=== PATIENT | female | born 1970 | race Caucasian/White ===

== ENCOUNTER 2017-09-27 10:31 | Emergency (ER) | payer BC, OTHER ==
[~2017-09-27] VITALS: Ht 152.4 cm; Wt 92.3 kg
[~2017-09-27 10:31] MED LIST: ASPI81TA28 PO; GABA-1220 PO; INSU70IN2 SC; LISI-787 PO
[2017-09-27 10:37] VITALS: TEMP 36.8; Ht 152.4 cm; Wt 92.3 kg
[2017-09-27] MEDS ORDERED: LISINOPRIL/HCTZ 20/25MG TAB PO STA (10:58)
[2017-09-27 11:22] LABS: BASO % 0.4 %; BASO ABS # 0.03 K/uL (0-0.2); EOS % 1.1 %; EOS ABS # 0.09 K/uL (0-0.5); HEMATOCRIT 37.3 % (37-47); HEMOGLOBIN 11.6 g/dL (12.0-16.0); IG# 0.02 K/uL (0.00-0.02); LYMPH % 23.4 %; MEAN CELL VOLUME 67.2 fL (80-100); MEAN CORPUSCULAR HEMOGLOBIN 20.9 pg (25-34); MEAN CORPUSCULAR HGB CONC 31.1 g/dl (32-36); MEAN PLATELET VOLUME 10.4 fL (7.4-10.4); MONO % 4.6 %; MONO ABS # 0.39 K/uL (0.11-0.59); NEUT % 70.3 %; NEUT ABS # 6.03 K/uL (1.4-6.5); PLATELET COUNT 277 K/uL (130-400); RED CELL DISTRIBUTION WIDTH CV 15.3 % (11.5-14.5); RED CELL DISTRIBUTION WIDTH SD 37.2 fL (36.4-46.3); WHITE BLOOD COUNT 8.56 K/uL (4.8-10.8)
[2017-09-27] MEDS ORDERED: KETOROLAC TROMETHAMINE 30 MG/ML VIAL IV STA (11:26)
[2017-09-27 11:33] LABS: INR 0.9 (0.9-1.1); PTT PATIENT 28.8 SECONDS (21.0-31.0)
[2017-09-27 11:40] LABS: ALBUMIN 2.9 gm/dl (3.4-5.0); ALT/SGPT 17 U/L (12-78); AST/SGOT 11 U/L (15-37); BLOOD UREA NITROGEN 14 mg/dl (7-18); CALCIUM 8.9 mg/dl (8.5-10.1); CARBON DIOXIDE 28 mmol/L (21-32); CREATININE 0.98 mg/dl (0.60-1.20); GLUCOSE 341 mg/dl (70-99); POTASSIUM 3.8 mmol/L (3.5-5.1); SODIUM 132 mmol/L (136-145)
[2017-09-27 11:42] LABS: TOTAL PROTEIN 7.5 gm/dl (6.4-8.2)
[2017-09-27 11:50] LABS: ALKALINE PHOSPHATASE 148 U/L (45-117)
--- NOTE | 2017-09-27 12:49 | DIAGNOSTIC IMAGING REPORT ---
L VENOUS DOPP LOWER EXT UNILAT CLINICAL HISTORY: eval for dvt pain. Edema. TECHNIQUE: Venous Doppler COMPARISON STUDY: None FINDINGS: Left leg is negative for deep venous thrombosis. Venous flow characteristics and compressibility are within normal limits. Incidental note is made of a popliteal cyst posterior to the left knee measuring 5 x 2 cm. IMPRESSION: 1. Left leg is negative for deep venous tendinosis. 2. Popliteal cyst posterior to left knee The above report was generated using voice recognition software. It may contain grammatical, syntax or spelling errors. Electronically signed by: Chencho Larsen M.D. 09/27/2017 12:48 PM Dictated Date/Time: 09/27/2017 12:46 PM
[2017-09-27] MEDS ORDERED: SODIUM CHLORIDE 0.9% 1000ML 1,000 ML IV STA (13:13)
[2017-09-27] MEDS ORDERED: NovoLIN-R INSULIN PER UNIT CHARGE IV STA (13:13)
--- NOTE | 2017-09-27 13:26 | DIAGNOSTIC IMAGING REPORT ---
LUMBAR SPINE 5 VIEWS CLINICAL HISTORY: Chronic low back pain. FINDINGS: 5 views of the lumbar spine are correlated with abdominal CT dated 10/04/2015. The skeletal structures are well mineralized. There is no radiographic evidence of fracture or malalignment. Vertebral body height and alignment are maintained. The transverse and spinous processes are intact. There is no evidence of spondylolysis. Tiny anterior osteophytes are seen throughout. The intervertebral disc spaces are well-maintained. The visualized bony pelvis appears intact. There is a nonobstructed abdominal bowel gas pattern. Calcified phleboliths are noted in the pelvis. IMPRESSION: Unremarkable radiographic evaluation of the lumbosacral spine. Electronically signed by: Girma Blevins M.D. 09/27/2017 1:24 PM Dictated Date/Time: 09/27/2017 1:23 PM
[2017-09-27] MEDS ORDERED: LISI-787 PO (14:41)
[2017-09-27 14:54] VITALS: BP 210/115; PULSE 93; O2SAT 95
--- NOTE | 2017-09-27 17:17 | EMERGENCY ROOM VISIT NOTE ---
History Report prepared by Stefano: Freddy Ma Under the Supervision of: Dr. Kirill Matt M.D. First contact with patient: 10:45 Chief Complaint: LEG PAIN,LEG INJURY Stated Complaint: LEFT CALF BURNING AND THROBBING, BACK & NECK PAIN History of Present Illness The patient is a 47 year old female who presents to the Emergency Room with complaints of constant left calf pain beginning yesterday. The patient describes her pain as a "burning" and "pulling" sensation. She localizes the pain to a specific area on her outer, upper calf. She has a history of cervical disc disease, spinal stenosis, chronic lower back pain (x1 year), and herniated disc (x2 years). The patient notes that her pain began after being seen by a chiropractor last week. She states that her chiropractor used a "mervat hammer- like machine" on her lower back which seem to worsen her back pain and because pain to shoot down her leg. She notes that she chronically has numbness in her buttocks (x1 month or more) as well. The patient denies any weakness, chest pain , SOB, abdominal pain, fevers, abnormal leg swelling, or loss of continence. Her right leg appears a little larger than her left, but this is normal for her. The patient has a history of hypertension, but has not been taking her Lisinopril and insulin for 2.5 months due to her insurance no longer covering the medication. She states that her lisinopril is covered but she never got around to getting a prescription. She also never got around to following up with her doctor about her diabetes medication. She denies chance of . Source of History: patient Onset: yesterday Position: leg (left calf) Quality: burning, other ("pulling") Timing: constant Associated Symptoms: + numbness (in buttocks (x1 month or more)), No fevers , No chest pain, No SOB, No abdominal pain, No weakness Note: Negative: abnormal leg swelling, or loss of continence. Review of Systems See HPI for pertinent positives & negatives. A total of 10 systems reviewed and were otherwise negative. Past Medical & Surgical Medical Problems: (1) Alport's syndrome (2) Diabetes mellitus, type II (3) Dyslipidemia (4) Gastroparesis (5) GERD (gastroesophageal reflux disease) (6) Hypertension (7) IBS (irritable bowel syndrome) (8) Iron deficiency anemia (9) Metabolic syndrome (10) Morbid obesity with BMI of 40.0-44.9, adult Surgical Problems: (1) Status post section Family History Alport's disease MOTHER BROTHER BROTHER Diabetes mellitus MOTHER BROTHER ( at age 35 ) FH: heart disease MOTHER (Fatal VT 60s ) Hypertension MOTHER BROTHER Social History Smoking Status: Former Smoker Alcohol Use: none Drug Use: none Marital Status: single Housing Status: lives with family Occupation Status: employed Current/Historical Medications Scheduled Lisinopril/Hctz (Zestoretic 20MG/12.5MG), 1 TAB PO DAILY Allergies Coded Allergies: No Known Allergies (Verified , 09/27/17) Physical Exam Vital Signs Date Time Temp Pulse Resp B/P (MAP) Pulse Ox O2 Delivery O2 Flow Rate FiO2 09/27/17 14:54 93 18 210/115 95 Room Air 09/27/17 13:05 98 16 213/128 96 Room Air 09/27/17 11:16 100 18 233/119 98 Room Air 09/27/17 10:37 36.8 109 18 231/145 99 Room Air Physical Exam Constitutional: Vital signs reviewed. Eyes: Pupils are equal round reactive to light. Conjunctiva are noninjected. ENT: Pharynx is clear without erythema or exudate. Mucous membranes are moist. Neck supple without meningeal signs. Respiratory: Clear to auscultation bilaterally. Breath sounds are equal bilaterally. Cardiovascular: Regular rate and rhythm. No rubs or gallops. GI: Soft, nondistended and nontender. Bowel sounds are present. Musculoskeletal: No peripheral edema. No lower extremity tenderness. No tenderness to the left calf. No erythema, or palpable cord. Integumentary: No cyanosis. Neurological: The patient is awake and alert. No focal deficits. Psychiatric: Normal affect. Medical Decision & Procedures ER Provider Diagnostic Interpretation: Radiology results as stated below per my review and the radiologist's interpretation: L VENOUS DOPP LOWER EXT UNILAT FINDINGS: Left leg is negative for deep venous thrombosis. Venous flow characteristics and compressibility are within normal limits. Incidental note is made of a popliteal cyst posterior to the left knee measuring 5 x 2 cm. IMPRESSION: 1. Left leg is negative for deep venous tendinosis. 2. Popliteal cyst posterior to left knee The above report was generated using voice recognition software. It may contain grammatical, syntax or spelling errors. Electronically signed by: Chencho Larsen M.D. 09/27/2017 12:48 PM LUMBAR SPINE 5 VIEWS FINDINGS: 5 views of the lumbar spine are correlated with abdominal CT dated 10/04/2015. The skeletal structures are well mineralized. There is no radiographic evidence of fracture or malalignment. Vertebral body height and alignment are maintained. The transverse and spinous processes are intact. There is no evidence of spondylolysis. Tiny anterior osteophytes are seen throughout. The intervertebral disc spaces are well-maintained. The visualized bony pelvis appears intact. There is a nonobstructed abdominal bowel gas pattern. Calcified phleboliths are noted in the pelvis. IMPRESSION: Unremarkable radiographic evaluation of the lumbosacral spine. Electronically signed by: Girma Blevins M.D. 09/27/2017 1:24 PM Laboratory Results 09/27/17 11:10 Red Blood Count 5.55, Mean Corpuscular Volume 67.2, Mean Corpuscular Hemoglobin 20.9, Mean Corpuscular Hemoglobin Concent 31.1, Mean Platelet Volume 10.4, Neutrophils (%) (Auto) 70.3, Lymphocytes (%) (Auto) 23.4, Monocytes (%) (Auto) 4.6, Eosinophils (%) (Auto) 1.1, Basophils (%) (Auto) 0.4, Neutrophils # (Auto) 6.03, Lymphocytes # (Auto) 2.00, Monocytes # (Auto) 0.39, Eosinophils # (Auto) 0.09, Basophils # (Auto) 0.03 09/27/17 11:10 Test 09/27/17 11:10 09/27/17 11:30 White Blood Count 8.56 K/uL (4.8-10.8) Red Blood Count 5.55 M/uL (4.2-5.4) Hemoglobin 11.6 g/dL (12.0-16.0) Hematocrit 37.3 % (37-47) Mean Corpuscular Volume 67.2 fL (80-100) Mean Corpuscular Hemoglobin 20.9 pg (25-34) Mean Corpuscular Hemoglobin Concent 31.1 g/dl (32-36) Platelet Count 277 K/uL (130-400) Mean Platelet Volume 10.4 fL (7.4-10.4) Neutrophils (%) (Auto) 70.3 % Lymphocytes (%) (Auto) 23.4 % Monocytes (%) (Auto) 4.6 % Eosinophils (%) (Auto) 1.1 % Basophils (%) (Auto) 0.4 % Neutrophils # (Auto) 6.03 K/uL (1.4-6.5) Lymphocytes # (Auto) 2.00 K/uL (1.2-3.4) Monocytes # (Auto) 0.39 K/uL (0.11-0.59) Eosinophils # (Auto) 0.09 K/uL (0-0.5) Basophils # (Auto) 0.03 K/uL (0-0.2) RDW Standard Deviation 37.2 fL (36.4-46.3) RDW Coefficient of Variation 15.3 % (11.5-14.5) Immature Granulocyte % (Auto) 0.2 % Immature Granulocyte # (Auto) 0.02 K/uL (0.00-0.02) Microcytosis PRESENT Prothrombin Time 9.7 SECONDS (9.0-12.0) Prothromb Time International Ratio 0.9 (0.9-1.1) Activated Partial Thromboplast Time 28.8 SECONDS (21.0-31.0) Partial Thromboplastin Ratio 1.1 Anion Gap 6.0 mmol/L (3-11) Est Creatinine Clear Calc Drug Dose 73.5 ml/min Estimated GFR () 80.7 Estimated GFR (Non- 69.7 BUN/Creatinine Ratio 13.9 (10-20) Calcium Level 8.9 mg/dl (8.5-10.1) Total Bilirubin 0.3 mg/dl (0.2-1) Direct Bilirubin < 0.1 mg/dl (0-0.2) Aspartate Amino Transf (AST/SGOT) 11 U/L (15-37) Alanine Aminotransferase (ALT/SGPT) 17 U/L (12-78) Alkaline Phosphatase 148 U/L (45-117) Total Protein 7.5 gm/dl (6.4-8.2) Albumin 2.9 gm/dl (3.4-5.0) Beta-Hydroxybutyric Acid 4.49 mg/dL (0.2-2.81) Urine Color YELLOW Urine Appearance CLOUDY (CLEAR) Urine pH 5.5 (4.5-7.5) Urine Specific Severance 1.034 (1.000-1.030) Urine Protein 3+ (NEG) Urine Glucose (UA) 3+ (NEG) Urine Ketones NEG (NEG) Urine Occult Blood 1+ (NEG) Urine Nitrite NEG (NEG) Urine Bilirubin NEG (NEG) Urine Urobilinogen NEG (NEG) Urine Leukocyte Esterase NEG (NEG) Urine WBC (Auto) >30 /hpf (0-5) Urine RBC (Auto) 10-30 /hpf (0-4) Urine Hyaline Casts (Auto) 1-5 /lpf (0-5) Urine Epithelial Cells (Auto) >30 /lpf (0-5) Urine Bacteria (Auto) 1+ (NEG) Laboratory results as reviewed by me. Medications Administered Medications (Trade) Dose Ordered Sig/Juanita Route Start Time Stop Time Status Last Admin Dose Admin HCTZ/Lisinopril (Prinzide 20-25MG Tab) 1 tab ONE STAT PO 09/27/17 10:58 09/27/17 11:01 DC 09/27/17 11:18 1 TAB Ketorolac Tromethamine (Toradol Inj) 10 mg NOW STAT IV 09/27/17 11:26 09/27/17 11:27 DC 09/27/17 11:32 10 MG Insulin Human Regular (novoLIN-R U-100 PER UNIT) 8 units NOW STAT IV 09/27/17 13:13 09/27/17 13:14 DC 09/27/17 13:32 8 UNITS Sodium Chloride 1,000 ml @ 999 mls/hr Q1H1M STAT IV 09/27/17 13:13 09/27/17 14:13 DC 09/27/17 13:13 999 MLS/HR ED Course 1050: The patient was evaluated in room C3. A complete history and physical exam was performed. 1058: Ordered Prinzide 20-25 mg tab PO. 1126: Ordered Toradol Inj 10 mg IV. 1313: Ordered Sodium Chloride 1000 ml @ 999 mls/hr IV, Novolin-R U-100 per unit 8 units IV. 1342: I reassessed the patient. She is feeling better. She does not want steroids or pain medication for her back pain due to the hyperglycemia it may cause. The patient notes that she mostly wanted to rule out blood clots. She will follow up with Dr. Johnson of orthopedics for her back pain. She notes that she can take her blood pressure medications, as her insurance does cover them ( insurance does not cover insulin), but has not gotten around to seeing her PCP to have the medications refilled. The rifle case repairer will expedite getting the patient an appointment. I recommended not acutely lowering the patient's blood pressure, and explained the reasoning with her. 1437: The patient's repeat BSG was 240. Upon reevaluation, the patient appeared to have improvement of her symptoms. I discussed toncem's findings with her. She verbalized agreement of the treatment plan. The patient was discharged home. Medical Decision This is a 47-year-old female who presents with back pain and leg pain. Differential diagnosis includes intervertebral disc disease, lumbar radiculopathy, DVT, superficial, colitis, strain. I did perform a limited focused review of portions of the patient's old chart on the electronic medical record. The patient has had no recent pertinent visits to this hospital. She had an MRI of her C-spine in 2016 which showed significant disc disease and multi-level central canal stenosis. I did evaluate the patient as noted above. IV access was established. I did treat the patient with Toradol IV. She was also given Zestoretic for her blood pressure which was very high. It is very high because she has been noncompliant with her medications. I did order and personally review the patient's lumbar spine x-ray as described above. I did order and review the patient's blood work as noted in the electronic medical record. I did order a Doppler ultrasound of the left leg. I did review the images myself as well as the radiology report as described above. There is no evidence of DVT. She does have a popliteal cyst. I did reassess the patient. Her blood pressure remains high. She was informed of her test results including her elevated glucose. She was given IV fluids with normal saline as well as insulin IV. She states her pain is better. I did not recommend acutely lowering her blood pressure as she is not having any evidence of endorgan damage. I did feel slowly lowering her blood pressure would be best for her. She does state that her Zestoretic is covered by insurance and so I did give her a prescription for Zestoretic. She will follow up with her doctor regarding her blood sugar. I did have the rifle case repairer attempt to give her a close follow-up appointment but the patient refused and stated she would make her own appointment. She was also advised to follow-up with Dr. Johnson of orthopedic spine. Repeat blood sugar was 240. She declined any pain medications. She cannot have steroids because of her elevated blood sugars. She was discharged in good condition and given return instructions as outlined below. Medication Reconcilliation Current Medication List: was personally reviewed by me Blood Pressure Screening Patient's blood pressure: Elevated blood pressure Blood pressure disposition: Referred to PCP Impression Primary Impression: Low back pain Additional Impressions: Poorly-controlled hypertension Noncompliance with medications Hyperglycemia Popliteal cyst Scribe Attestation The scribe's documentation has been prepared under my direct and personally reviewed by me in its entirety. I confirm that the note above accurately reflects all work, treatment, procedures, and medical decision making performed by me. Departure Information Dispostion Home / Self-Care Prescriptions Lisinopril/Hctz (Zestoretic 20MG/12.5MG) Tab 1 TAB PO DAILY, #20 TAB Prov: Kirill Matt M.D. 09/27/17 Referrals No Doctor, Assigned (PCP) Forms HOME CARE DOCUMENTATION FORM, IMPORTANT VISIT INFORMATION Patient Instructions ED Hyperglycemia Diabetic, ED Hypertension Conf Out Of Control, Lumbar Radiculopathy, My [facility] Additional Instructions You have been examined and treated today on an emergency basis only. This is not a substitute for, or an effort to provide, complete comprehensive medical care. It is impossible to recognize and treat all injuries or illnesses in a single emergency department visit. It is therefore important that you follow up closely with your physician. Call as soon as possible for an appointment. Return for worsening symptoms or if you develop fever, vomiting, chest pain, shortness of breath, abdominal pain, loss of control of your bowel or bladder, numbness or weakness to your legs, numbness to your private area, difficulty urinating, or any other concerning symptoms. Problem Qualifiers Primary Impression: Low back pain Chronicity: unspecified Back pain laterality: unspecified Sciatica presence : with sciatica Sciatica laterality: sciatica of left side Qualified Codes: M54.42 - Lumbago with sciatica, left side Additional Impressions: Popliteal cyst Laterality: left Qualified Codes: M71.22 - Synovial cyst of popliteal space [[place]], left knee
== END 2017-09-27 15:00 | disposition home or self-care (01) ==
LOC: C.EDB 10:34 → C.EDC 15:00
DX: M54.42 Lumbago with sciatica, left side (principal); G89.29 Other chronic pain; I10 Essential (primary) hypertension; E11.65 Type 2 diabetes mellitus with hyperglycemia; M71.22 Synovial cyst of popliteal space [Baker], left knee; M48.00 Spinal stenosis, site unspecified; Q87.81 Alport syndrome; E78.5 Hyperlipidemia, unspecified; K31.84 Gastroparesis; K58.9 Irritable bowel syndrome, unspecified; K21.9 Gastro-esophageal reflux disease without esophagitis; D50.9 Iron deficiency anemia, unspecified; E88.81 Metabolic syndrome and other insulin resistance; E66.01 Morbid (severe) obesity due to excess calories; Z68.41 Body mass index [BMI] 40.0-44.9, adult; Z84.1 Family history of disorders of kidney and ureter; Z83.3 Family history of diabetes mellitus; Z82.49 Family history of ischemic heart disease and other diseases of the circulatory system; Z87.891 Personal history of nicotine dependence; Z91.14 Patient's other noncompliance with medication regimen

== ENCOUNTER 2019-05-12 11:56 | Observation (INO) ==
[2019-05-12] MEDS ORDERED: KETOROLAC 30 MG/ML VIAL IV STA (13:57)
[2019-05-12] MEDS ORDERED: SODIUM CHLORIDE 0.9% 1000ML 1,000 ML IV ONE ×2 (13:58→16:24)
--- NOTE | 2019-05-12 14:04 | Emergency Department Note ---
History of Present Illness General Chief Complaint: Abdominal Pain Stated Complaint: STOMACH PAIN History of Present Illness Maximum Pain Intensity: 9 This patient is a 48-year-old female who presents to the emergency department complaining of a sharp, stabbing right lower quadrant abdominal pain that started at approximately 6 PM last night. It comes in waves. Worse with movement. Radiates to the back. She has been nauseated without vomiting. No changes in bowel movements. Last menstrual cycle was 2 months ago. Patient reports possibly going through menopause. She denies any chance of . No fever. No urinary symptoms. She has not taken anything for pain Related Data Last Menstrual Period: 2 months ago Home Medications Home Medications Medication Instructions Recorded Confirmed Type atorvastatin 40 mg PO QAM 05/03/18 05/12/19 History metformin 500 mg PO BIDM 05/03/18 05/12/19 History lisinopril-hydrochlorothiazide 1 tab PO QAM 06/03/18 05/12/19 History Basaglar KwikPen U-100 Insulin 36 unit SUBCUT HS 02/21/19 05/12/19 History Allergies Allergy/AdvReac Type Severity Reaction Status Date / Time No Known Allergies Allergy Verified 05/12/19 14:18 Past Med/Surg History Medical History Alport syndrome "carrier", no hearing deficits- follows with nephrology Anemia chronic; hgb stable in the 9 range Cardiac murmur no significant valvular disease per 2016 ECHO; "very soft I/ systolic murmur" per PAT visit 05/2018 Degenerative disc disease with LUE neuropathy Diabetes mellitus, type 2 GERD (gastroesophageal reflux disease) WELL CONTROLLED. Hyperlipidemia Hypertension Morbid (severe) obesity due to excess calories Surgical History History of section X2 History of difficult intubation C4-C7 ACDF: 06/03/18: Grade view 1, Glidescope#3, ETT 7.0 at [facility] History of dilatation and curettage Hx of neck surgery C4-C7 ACDF (no ROM limitations per patient) Family History Mother Diabetes Brother Diabetes Social History Preferred Language: Palestinian Communication Ability: Effective Computer Installer Required: No Beliefs That Will Affect Care: None Current Living Situation: Family Other Information That Helps Us Care for You: No Feels Safe at Home: Yes Safety Concerns: Feels Safe At This Time Smoking Status: Never smoker Second Hand Exposure: No ; Hx Alcohol Use: No Hx Substance Use: No Review of Systems A total of 10 systems reviewed and were otherwise negative Physical Exam Vital Signs: Vital Signs - 24 hr 05/12/19 13:44 05/12/19 14:11 05/12/19 14:59 Temperature Temperature Source Pulse Rate [Right Finger] 90 91 H 94 H Pulse Rhythm [Righ t Finger] Regular Pulse Strength [Ri ght Finger] Normal Respiratory Rate 20 18 18 Respiratory Effort / Characteristics Non-Labored Sponta neous Non-Labored Sponta neous Respiratory Depth Normal Normal Respiratory Patter n Regular Blood Pressure [Le ft Arm] 117/83 127/83 117/80 Blood Pressure Emelia n [Left Arm] 94 97 92 Blood Pressure Pos ition [Left Arm] Sitting Pulse Oximetry 97 97 99 Oxygen Delivery Me thod Room Air Room Air 05/12/19 16:11 05/12/19 18:03 05/12/19 19:10 Temperature Temperature Source Pulse Rate [Right Finger] 86 88 91 H Pulse Rhythm [Righ t Finger] Pulse Strength [Ri ght Finger] Respiratory Rate 20 20 18 Respiratory Effort / Characteristics Non-Labored Sponta neous Non-Labored Sponta neous Respiratory Depth Normal Normal Respiratory Patter n Regular Regular Blood Pressure [Le ft Arm] 109/78 129/88 131/86 Blood Pressure Emelia n [Left Arm] 88 101 101 Blood Pressure Pos ition [Left Arm] Sitting Pulse Oximetry 97 99 95 Oxygen Delivery Me thod Room Air Room Air Room Air 05/12/19 21:20 Temperature 36.6 C Temperature Source Oral Pulse Rate [Right Finger] 88 Pulse Rhythm [Righ t Finger] Pulse Strength [Ri ght Finger] Respiratory Rate 20 Respiratory Effort / Characteristics Respiratory Depth Respiratory Patter n Blood Pressure [Le ft Arm] 151/86 H Blood Pressure Emelia n [Left Arm] 107 Blood Pressure Pos ition [Left Arm] Pulse Oximetry 98 Oxygen Delivery Me thod Constitutional: WD/WN, vitals as above Eyes: EOM intact bilaterally ENMT: external ear and nose normal, oropharynx normal Neck: trachea midline Respiratory: normal respiratory effort, lungs clear to auscultation Cardiovascular: Rate/Rhythm: regular rate Systolic murmur noted to the left midsternal border Gastrointestinal (Abdomen): Significant tenderness to palpation in the right lower quadrant with rebound tenderness noted. Bowel sounds hypoactive. Abdomen is soft. Musculoskeletal: no cyanosis or clubbing, extremities motor strength 5/5 Skin: no rashes, warm and dry Neurologic: Alert and oriented x3. No focal motor deficits. Psychiatric: Acting appropriately Course Patient was seen and examined Vital signs including blood pressure were reviewed medications list was verified with patient Labs were obtained, and a saline lock was established The patient was ordered Toradol 30 mg IV and 1 L of normal saline. She was also ordered Zofran 4 mg IV for nausea. Imaging was performed and reviewed Upon reevaluation, the patient was having pain. She was ordered Dilaudid 0.5 mg IV. Consultations were performed. GAS STATION OPERATOR agreed to come and evaluate the patient. Upon reevaluation, the patient's pain was controlled. We discussed her work-up. She voiced understanding, and was comfortable with this plan. The patient will be taken to the OR for further work-up and treatment. She remained stable in the emergency department. Consultations Consultation #1: Dr. Suarez Consultation #2: Dr. Marshall Administered Medications Lactated Ringer's (Lr) 1,000 mls @ 125 mls/hr IV .Q8H ENOCH Stop: 06/11/19 23:44 Last Infusion: 05/13/19 08:53 Dose: 0 mls/hr Documented by: [id number] Infusion: 05/13/19 06:25 Dose: 125 mls/hr Documented by: [id number] Admin: 05/13/19 01:10 Dose: 125 mls/hr Documented by: [id number] Ibuprofen (Motrin) 600 mg PO Q6H PRN PRN Reason: Pain Stop: 06/12/19 07:14 Last Admin: 05/13/19 08:55 Dose: 600 mg Documented by: [id number] Insulin Aspart (Novolog Flexpen) 0 units SC ACHS ENOCH Stop: 06/12/19 07:29 Last Admin: 05/13/19 08:46 Dose: 13 units Documented by: [id number] Cosigned by: [id number] Ioversol (Optiray 320 100ml) 94 ml IV ONCE PRN PRN Reason: Interaction Checking Stop: 05/16/19 19:04 Last Admin: 05/12/19 19:06 Dose: 94 ml Documented by: [id number] Oxycodone/Acetaminophen (Percocet 5mg/325mg) 1 tab PO Q4H PRN PRN Reason: Pain Stop: 05/27/19 07:12 Last Admin: 05/13/19 08:55 Dose: 1 tab Documented by: [id number] Discontinued Medications Bupivacaine HCl (Marcaine 0.5% Mpf) Confirm Administered Dose 30 ml .ROUTE .STK- MED ONE Stop: 05/12/19 21:21 Last Admin: 05/12/19 23:34 Dose: Not Given Documented by: [id number] Hydromorphone HCl (Dilaudid) 0.5 mg IV NOW STA Stop: 05/12/19 18:25 Last Admin: 05/12/19 18:32 Dose: 0.5 mg Documented by: [id number] Hydromorphone HCl (Dilaudid) 0.5 mg IV Q5M PRN PRN Reason: PACU Use Only-Pain Stop: 05/13/19 02:48 Last Admin: 05/13/19 00:11 Dose: 0.5 mg Documented by: [id number] Hydromorphone HCl () 30 mg IV UD PRN; Protocol PRN Reason: Pain Stop: 05/26/19 23:54 Last Admin: 05/13/19 01:33 Dose: 30 mg Documented by: [id number] Cosigned by: [id number] Sodium Chloride (Nss 1000ml) 1,000 mls @ 999 mls/hr IV .Q1H1M ONE Stop: 05/12/19 14:58 Last Infusion: 05/12/19 15:14 Dose: 0 mls/hr Documented by: [id number] Admin: 05/12/19 14:07 Dose: 999 mls/hr Documented by: [id number] Sodium Chloride (Nss 1000ml) 1,000 mls @ 999 mls/hr IV .Q1H1M ONE Stop: 05/12/19 17:24 Last Infusion: 05/12/19 17:48 Dose: 0 mls/hr Documented by: [id number] Admin: 05/12/19 16:38 Dose: 999 mls/hr Documented by: [id number] Insulin Human Regular 4 units/ (Syringe) 4 mls @ 30 mls/min IV NOW ONE Stop: 05/13/19 06:01 Last Admin: 05/13/19 02:50 Dose: 30 mls/min Documented by: [id number] Cosigned by: [id number] Insulin Aspart (Novolog Flexpen) 0 units SC NOW STA Stop: 05/13/19 04:14 Last Admin: 05/13/19 04:30 Dose: 8 units Documented by: [id number] Cosigned by: [id number] Insulin Aspart (Novolog Flexpen) 4 units SC ONE ONE Stop: 05/13/19 06:16 Last Admin: 05/13/19 02:50 Dose: 4 units Documented by: [id number] Cosigned by: [id number] Insulin Glargine (Lantus Solostar Pen) 36 units SC ONE ONE Stop: 05/13/19 04:16 Last Admin: 05/13/19 04:30 Dose: 36 units Documented by: [id number] Cosigned by: [id number] Ketorolac Tromethamine (Toradol) 30 mg IV NOW STA Stop: 05/12/19 13:58 Last Admin: 05/12/19 14:07 Dose: 30 mg Documented by: [id number] Ondansetron HCl (Zofran) 4 mg IV NOW STA Stop: 05/12/19 14:08 Last Admin: 05/12/19 14:10 Dose: 4 mg Documented by: [id number] Medical Decision Making Differential Diagnosis + ectopic (female), + ovarian torsion (female), + appendicitis and + pancreatitis Ovarian torsion Medical Records Attestation: I reviewed the patient's medical records. Home Medications Current Medication List: was personally reviewed by me Laboratory Data Attestation: I reviewed the patient's lab results. Result diagrams: 05/13/19 05:30 05/12/19 13:38 Lab Results 05/12/19 05/12/19 05/12/19 Range/Units 13:31 13:38 13:38 WBC 17.15 H (4.8-10.8) K/uL RBC 4.84 (4.2-5.4) M/uL Hgb 9.9 L (12.0-16.0) g/dL Hct 33.3 L (37-47) % MCV 68.8 L (80-100) fL MCH 20.5 L (25-34) pg MCHC 29.7 L (32-36) g/dL RDW Std Deviation 38.4 (36.4-46.3) fL RDW Coeff of Ermelinda 15.4 H (11.5-14.5) % Plt Count 328 (130-400) K/uL MPV 11.6 H (7.4-10.4) fL Immature Gran % (Auto) 0.3 % Neut % (Auto) 80.1 % Lymph % (Auto) 11.7 % [place] % (Auto) 6.9 % Eos % (Auto) 0.9 % Baso % (Auto) 0.1 % Immature Gran # (Auto) 0.06 H (0.00-0.02) K/uL Neut # (Auto) 13.72 H (1.4-6.5) K/uL Lymph # (Auto) 2.01 (1.2-3.4) K/uL [place] # (Auto) 1.19 H (0.11-0.59) K/uL Eos # (Auto) 0.15 (0-0.5) K/uL Baso # (Auto) 0.02 (0-0.2) K/uL Polychromasia 1+ Microcytosis Present Sodium 132 L (136-145) mmol/L Potassium 4.0 (3.5-5.1) mmol/L Chloride 98 (98-107) mmol/L Carbon Dioxide 25 (21-32) mmol/L Anion Gap 9.0 (3-11) BUN 25 H (7-18) mg/dl Creatinine 1.44 H (0.6-1.2) mg/dl Est Cr Clr Drug Dosing 50.9 ml/min Est GFR ( Amer) 50.3 Est GFR (Non-Af Amer) 43.4 BUN/Creatinine Ratio 17.5 (10-20) Glucose 260 H (70-99) mg/dl Calcium 9.0 (8.5-10.1) mg/dl Total Bilirubin 0.3 (0.2-1) mg/dl AST 11 L (15-37) U/L ALT 13 (12-78) U/L Alkaline Phosphatase 138 H (45-117) U/L Total Protein 7.3 (6.4-8.2) gm/dl Albumin 3.0 L (3.4-5.0) gm/dl Globulin 4.3 H (2.5-4.0) gm/dl Albumin/Globulin Ratio 0.7 L (0.9-2) Lipase 189 (73-393) U/L HCG, Qual (Negative) Urine Color Yellow Urine Appearance Clear (Clear) Urine pH 5.0 (4.5-7.5) Ur Specific [place] 1.021 (1.000-1.030) Urine Protein Negative (Negative) Urine Glucose (UA) 3+ H (Negative) Urine Ketones Negative (Negative) Urine Blood Negative (Negative) Urine Nitrite Negative (Negative) Urine Bilirubin Negative (Negative) Urine Urobilinogen Negative (Negative) Ur Leukocyte Esterase 1+ H (Negative) Urine WBC (Auto) 5-10 H (0-5) /hpf Urine RBC (Auto) 0-4 (0-4) /hpf U Hyaline Cast (Auto) 0 (0-5) /lpf U Epithel Cells (Auto) >30 H (0-5) /lpf Urine Bacteria (Auto) Negative (Negative) Blood Type Antibody Screen 05/12/19 05/12/19 Range/Units 13:38 22:10 WBC (4.8-10.8) K/uL RBC (4.2-5.4) M/uL Hgb (12.0-16.0) g/dL Hct (37-47) % MCV (80-100) fL MCH (25-34) pg MCHC (32-36) g/dL RDW Std Deviation (36.4-46.3) fL RDW Coeff of Ermelinda (11.5-14.5) % Plt Count (130-400) K/uL MPV (7.4-10.4) fL Immature Gran % (Auto) % Neut % (Auto) % Lymph % (Auto) % [place] % (Auto) % Eos % (Auto) % Baso % (Auto) % Immature Gran # (Auto) (0.00-0.02) K/uL Neut # (Auto) (1.4-6.5) K/uL Lymph # (Auto) (1.2-3.4) K/uL [place] # (Auto) (0.11-0.59) K/uL Eos # (Auto) (0-0.5) K/uL Baso # (Auto) (0-0.2) K/uL Polychromasia Microcytosis Sodium (136-145) mmol/L Potassium (3.5-5.1) mmol/L Chloride (98-107) mmol/L Carbon Dioxide (21-32) mmol/L Anion Gap (3-11) BUN (7-18) mg/dl Creatinine (0.6-1.2) mg/dl Est Cr Clr Drug Dosing ml/min Est GFR ( Amer) Est GFR (Non-Af Amer) BUN/Creatinine Ratio (10-20) Glucose (70-99) mg/dl Calcium (8.5-10.1) mg/dl Total Bilirubin (0.2-1) mg/dl AST (15-37) U/L ALT (12-78) U/L Alkaline Phosphatase (45-117) U/L Total Protein (6.4-8.2) gm/dl Albumin (3.4-5.0) gm/dl Globulin (2.5-4.0) gm/dl Albumin/Globulin Ratio (0.9-2) Lipase (73-393) U/L HCG, Qual Negative (Negative) Urine Color Urine Appearance (Clear) Urine pH (4.5-7.5) Ur Specific [place] (1.000-1.030) Urine Protein (Negative) Urine Glucose (UA) (Negative) Urine Ketones (Negative) Urine Blood (Negative) Urine Nitrite (Negative) Urine Bilirubin (Negative) Urine Urobilinogen (Negative) Ur Leukocyte Esterase (Negative) Urine WBC (Auto) (0-5) /hpf Urine RBC (Auto) (0-4) /hpf U Hyaline Cast (Auto) (0-5) /lpf U Epithel Cells (Auto) (0-5) /lpf Urine Bacteria (Auto) (Negative) Blood Type O Positive Antibody Screen NEGATIVE Imaging Data Attestation: I personally reviewed and interpreted this imaging study as follows: Radiologist's Impression: Ultrasound pelvic IMPRESSION: 1. Mild degree of complex free pelvic fluid is nonspecific and may reflect sequela of recently ruptured hemorrhagic cyst or less likely ruptured occult ectopic gestation. Correlate with beta hCG. 2. scar of the uterus with unremarkable appearance of the endometrium. 3. Complex cystic foci of the cervix suggestive of nabothian cysts. 4. Unremarkable left ovary. 5. Nonvisualization of the right ovary. The above report was generated using voice recognition software. It may contain grammatical, syntax or spelling errors. Electronically signed by: Cody Walters M.D. 05/12/2019 3:22 PM Dictated: 05/12/19 1515 Transcribed: 05/12/[address] abdomen and pelvis with IV and oral contrast IMPRESSION: Mass-like abnormality along anterior aspect of the uterus that measures approximately 10.1 x 7.1 cm. Suspected fibroid at this site on CT of Ap ril 2015. Small amount of associated abdominal and pelvic ascites. This mass- like abnormality is nonspecific but raises the possibility of a fibroid with possible degeneration. A neoplasm or torsed ovary could appear similar. Gynecologic consultation is recommended. Findings discussed with Em Mansfield at time of dictation. Electronically signed by: Lee Suarez M.D. 05/12/2019 7:49 PM Dictated: 05/12/191907 Transcribed: 05/12/191947 Blood Pressure Blood Pressure Findings: Normal blood pressure MDM Narrative This patient is a 48-year-old female who presents to the emergency department complaining of sudden onset of right lower abdominal discomfort. On exam, she did have rebound tenderness and appeared to be uncomfortable. Vital signs were stable. Labs reveal significant leukocytosis. hCG is negative. minor renal insufficiency noted, which is not new. Imaging was performed. Ultrasound was consistent with fluid in the pelvis. I received a call from radiology regarding her CT results. There appears to be a fairly significant mass likely stemming from a gynecologic source. We cannot completely rule out ovarian torsion, which would fit the patient's symptoms. GAS STATION OPERATOR was consulted. They evaluated the patient, and agreed to take the the patient urgently to the OR for further evaluation. The patient was in agreement. Impression & Plan Abdominal mass Discharge Plan Visit Data *Final* Discharge Date/Time: 05/12/19 21:37 Chief Complaint: Abdominal Pain Stated Complaint: STOMACH PAIN ED Provider: Kleber Hoyt ED Midlevel Provider: Em Mansfield Discharge Problem: Abdominal mass Patient Disposition: Still a Patient Discharge Instructions Interventions: ED Discharge Assessment Last Done: 05/12/19 21:37
[2019-05-12] MEDS ORDERED: ONDANSETRON INJ 2 MG/ML 2 ML VIAL IV STA (14:07)
[2019-05-12 14:12] LABS: Basophils # (auto) 0.02 K/uL (0-0.2); Basophils % (auto) 0.1 %; Eosinophils # (auto) 0.15 K/uL (0-0.5); Eosinophils % (auto) 0.9 %; Hematocrit (blood only) 33.3 % (37-47); Hemoglobin 9.9 g/dL (12.0-16.0); Immature Granulocytes # (auto) 0.06 K/uL (0.00-0.02); Immature Granulocytes % (auto) 0.3 %; Lymphocytes # (auto) 2.01 K/uL (1.2-3.4); Lymphocytes % (auto) 11.7 %; Mean Corpuscular Hemoglobin 20.5 pg (25-34); Mean Corpuscular Hgb Conc 29.7 g/dL (32-36); Mean Corpuscular Volume 68.8 fL (80-100); Mean Platelet Volume 11.6 fL (7.4-10.4); Monocytes # (auto) 1.19 K/uL (0.11-0.59); Monocytes % (auto) 6.9 %; Neutrophils # (auto) 13.72 K/uL (1.4-6.5); Neutrophils % (auto) 80.1 %; Platelet Count 328 K/uL (130-400); RDW Coefficient of Variation 15.4 % (11.5-14.5); RDW Standard Deviation 38.4 fL (36.4-46.3); Red Blood Count 4.84 M/uL (4.2-5.4); White Blood Count 17.15 K/uL (4.8-10.8)
[2019-05-12 14:21] LABS: BUN Creatinine Ratio 17.5 (10-20); Creatinine Clr Calc Pharmacy 50.9 ml/min; Est GFR (African American) 50.3; Est GFR (Non-African American) 43.4
[2019-05-12 14:22] LABS: Pregnancy Test, Serum Negative (Negative)
[2019-05-12 14:23] LABS: Albumin Globulin Ratio 0.7 (0.9-2); Bilirubin,Total 0.3 mg/dl (0.2-1); Globulin 4.3 gm/dl (2.5-4.0); Total Protein 7.3 gm/dl (6.4-8.2)
[2019-05-12 14:38] LABS: Microcytosis Present; Polychromasia 1+
[2019-05-12 14:41] LABS: Appearance Urine Clear (Clear); Bacteria Urine Automated Negative (Negative); Bilirubin Urine Negative (Negative); Blood Urine Negative (Negative); Cast Urine Automated 0 /lpf (0-5); Color Urine Yellow; Epithelial Cell Urine Auto >30 /lpf (0-5); Glucose Urine UA 3+ (Negative); Ketones Urine Negative (Negative); Leukocyte Esterase Urine 1+ (Negative); Nitrite Urine Negative (Negative); Protein Urine Negative (Negative); RBC Urine Automated 0-4 /hpf (0-4); Specific Gravity Urine 1.021 (1.000-1.030); Urobilinogen Urine Negative (Negative)
--- NOTE | 2019-05-12 15:23 | Ultrasound Report ---
US pelvic complete HISTORY: 48 years-old Female RLQ pain n acute right lower quadrant pelvic pain COMPARISON: CTA abdomen and pelvis 10/04/2015 TECHNIQUE: Multiple real-time sonographic images of the deep pelvic structures were obtained transabd ominally and transvaginally assessing grayscale appearance, color and spectral flow FINDINGS: TRANSABDOMINAL: Uterus measures 9.2 x 4.8 x 6.2 cm and is suboptimally visualized transabdominally. Ovaries are not s een. TRANSVAGINAL: Uterus measures 10.1 x 3.7 x 6.2 cm. scar is noted. There are several cystic foci noted wit hin the cervix, one of which is complex measuring 1.6 x 1.4 x 1.3 cm possibly reflective of a complex nabothian cyst. Mild degree of complex free fluid seen within the pelvis. Right ovary is not diagnos tically visualized. Left ovary measures 3.4 x 1.9 x 2.5 cm demonstrating arterial inflow is also diff icult to visualize secondary to the complex free pelvic fluid. Endometrium measures 6 mm. IMPRESSION: 1. Mild degree of complex free pelvic fluid is nonspecific and may reflect sequela of recently ruptur ed hemorrhagic cyst or less likely ruptured occult ectopic gestation. Correlate with beta hCG. 2. scar of the uterus with unremarkable appearance of the endometrium. 3. Complex cystic foci of the cervix suggestive of nabothian cysts. 4. Unremarkable left ovary. 5. Nonvisualization of the right ovary. The above report was generated using voice recognition software. It may contain grammatical, syntax o r spelling errors. Electronically signed by: Cody Walters M.D. 05/12/2019 3:22 PM
[2019-05-12] MEDS ORDERED: HYDROmorphone INJ 0.5 MG/0.5 ML SYR IV STA (18:24)
[2019-05-12] MEDS ORDERED: IOVERSOL 100ml IV PRN (19:05)
--- NOTE | 2019-05-12 19:51 | CT Scan Report ---
CT OF THE ABDOMEN AND PELVIS WITH CONTRAST CLINICAL HISTORY: Right-sided abdominal pain. Rectal bleeding. COMPARISON STUDY: CT of the abdomen and pelvis March 05, 2016.] Quadrant ultrasound September 18 9. TECHNIQUE: Following IV administration of 94 mL of Optiray-320, axial images of the abdomen and pelvi s were obtained from the lung bases to the proximal femurs. Images were reviewed in the axial, sagitt al, and coronal planes. IV contrast was administered without complication. Automated exposure contro l was utilized for the study. A dose lowering technique was utilized adhering to the principles of A FREDDY. CT DOSE: 771.16 mGy.cm FINDINGS: Lung bases are unremarkable. The liver, spleen, adrenal glands and pancreas are unremarkabl e. There is no hydronephrosis. No biliary or pancreatic ductal dilatation is present. The appendix is normal. There is no evidence for a bowel obstruction. Note is made of a small amount of ascites with in the abdomen and pelvis. There is a mixed attenuation mass-like abnormality along the anterior aspe ct of the uterus that measures approximately 10.1 x 7.1 cm. The ovaries are difficult to visualize on this exam but appear to be posterior to this masslike abnormality. There is slight dilatation of the right fallopian tube. No suspicious osseous lesions are present. Evidence for previous sect ion is noted. IMPRESSION: Mass-like abnormality along anterior aspect of the uterus that measures approximately 10 .1 x 7.1 cm. Suspected fibroid at this site on CT of October 04, 2015. Small amount of associated abdomi nal and pelvic ascites. This mass-like abnormality is nonspecific but raises the possibility of a fib roid with possible degeneration. A neoplasm or torsed ovary could appear similar. Gynecologic consult ation is recommended. Findings discussed with Em Mansfield at time of dictation. Electronically signed by: Lee Suarez M.D. 05/12/2019 7:49 PM
[2019-05-12] MEDS ORDERED: BUPIVACAINE 0.5 % 5 MG/1 ML MPF 30ML VIAL ONE (21:20)
--- NOTE | 2019-05-12 21:20 | Consultation ---
Date of Consultation May 12, 2019 Assessment & Plan (1) Pelvic pain: (2) Pelvic mass: Discussed with patient that it is unclear to me source of her pain although mass seen in pelvis anterior to uterus. Doubt degenerating fibroid as she is premenopausal and not likely to have lack of vascular supply to cause degeneration. I reviewed US images alone and consulted with tech. There is some type of ovoid mass whose echogenicity does not match myometrium that sits on top of uterus, which is where area of concern seen on CT. I am wondering if that is her right ovary, ? torsion or with mass. Not sure. She has pain and guarding and that may just be from some peritoneal spill of blood. Just cannot be sure. Offered diagnostic laparoscopy with possible operative laparoscopy and management of cyst or ovary, with possible removal of cyst or ovary. She desires to proceed as she does not feel her pain is well controlled. Risks, alternatives, complications reviewed with the patient included but not limited to bleeding, infection, anesthesia, injury to surrounding structures to include bowel, bladder, vessels, nerves, ureters, deep venous thrombosis, pulmonary embolism, delayed complications, repeat hospitalizations. The patient desires to proceed and the consent form is signed. She is aware of her preop, postop instructions and course. OR and anesthesia called. Will proceed to OR in near future. History of Present Illness Requesting Physician: Dr. Gomez Reason for Consultation: pelvic pain, abnormal imaging findings History of Present Illness 48yo with cc of right sided pelvic pain who I am asked to see on consult by Em Mansfield PA-C/Dr. Gomez. Patient notes acute onset of pelvic pain on right side last pm at 6-7pm. Had trouble walking. Worsened over time and came to ER. No n/v. Drank soda at 1130am. Had bm yesterday, normal for her. No urinary symptoms. She last ate yes terday. She notes lack of beef selector care since last seen by us in 2014. 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 She had missed her last 2 cycles. Has tubal for control. I was called when CT imaging raised suspicion of possible beef selector etiology due to mass sitting anterior to uterus 10x 7cm. Pelvic u/s did show normal uterus, no evid ence of fibroids, c/s scar seen, nabothian cysts seen, left ovary seen and with normal arterial flow. Right ovary not seen. OBGYNH: c/section delivery x 2, second with tubal. nl paps, not recent, no stds. not SA. h/o D&C x2 due to heavy flow. menarche age 14. periods as noted above. not sure when mom had menopause but was still cycling at her in late 50s. PMH: DM, HTN, Alports carrier PSH: c/s x 2, tubal, d&c x2, cervical spine fusion, ulnar nerve surgery. SH: no tob, etoh, drugs FH: no breast/colon/ovarian cancers Allergies Allergy/AdvReac Type Severity Reaction Status Date / Time No Known Allergies Allergy Verified 05/12/19 14:18 Home Medications Home Medications Medication Instructions Recorded Confirmed Type atorvastatin 40 mg PO QAM 05/03/18 05/12/19 History metformin 500 mg PO BIDM 05/03/18 05/12/19 History lisinopril-hydrochlorothiazide 1 tab PO QAM 06/03/18 05/12/19 History Basaglar RodolfoikPen U-100 Insulin 36 unit SUBCUT HS 02/21/19 05/12/19 History Patient History Medical History Alport syndrome "carrier", no hearing deficits- follows with nephrology Anemia chronic; hgb stable in the 9 range Cardiac murmur no significant valvular disease per 2016 ECHO; "very soft I/ systolic murmur" per PAT visit 05/2018 Degenerative disc disease with LUE neuropathy Diabetes mellitus, type 2 GERD (gastroesophageal reflux disease) WELL CONTROLLED. Hyperlipidemia Hypertension Morbid (severe) obesity due to excess calories Surgical History History of difficult intubation C4-C7 ACDF: 06/03/18: Grade view 1, Glidescope#3, ETT 7.0 at [facility] History of section X2 History of dilatation and curettage Hx of neck surgery C4-C7 ACDF (no ROM limitations per patient) Family History Mother Diabetes Brother Diabetes Social History Preferred Language: Slovak Communication Ability: Effective Emergency Operator Required: No Beliefs That Will Affect Care: None Current Living Situation: Family Feels Safe at Home: Yes Smoking Status: Former smoker Second Hand Exposure: No ; Hx Alcohol Use: No Hx Substance Use: No Review of Systems Gastrointestinal: no change in stools Genitourinary: as per Subjective / HPI and + genital itching (thinks may have a yeast infection last few days. ); no dysuria, no urinary frequency, no urinary hesitancy, no urinary urgency and no abnormal vaginal bleeding Physical Exam Constitutional: WD/WN, vitals as above Gastrointestinal (Abdomen): Inspection/Auscultation: abdomen normal to inspection (obese) Percussion/Palpation: + abdomen tender (diffuse but especially in lower abdomen R>L), + guarding (rebound) and abdomen soft; abdomen not rigid Musculoskeletal: non tender calves, no edema Neurologic: grossly normal Psychiatric: A+Ox3, euthymic affect Genitourinary: normal external appearance (white discharge clumpy at introitus) Speculum/Bimanual Exam: normal appearance of the vagina, normal appearance of the cervix and + uterus tender (difficult exam due to habitus); no cervical tenderness, uterus not enlarged and no adnexal mass (difficult exam due to habitus) Results & Data Vital Signs (Past 12 Hours) Vital Signs Temp Pulse Pulse Resp BP BP Pulse Ox 05/12/19 19:10 91 H 18 131/86 95 05/12/19 18:03 88 20 129/88 99 05/12/19 16:11 86 20 109/78 97 05/12/19 14:59 94 H 18 117/80 99 05/12/19 14:11 91 H 18 127/83 97 05/12/19 13:44 90 20 117/83 97 05/12/19 11:59 98.1 F 108 H 17 141/79 H 100 PG Care Time/CCT Total # of Minutes Spent Total Time Spent with Patient: Total time spent is greater than 50% in coordination of care (as documented) at patient's floor/unit and/or counseling patient:
[2019-05-12] MEDS ORDERED: LACTATED RINGER'S 1,000 ML IV SCH ×2 (21:30→23:45)
--- NOTE | 2019-05-12 21:46 | Anesthesiology Consultation ---
Date of Service May 12, 2019 Assessment & Plan Chart Review Chart Review: Acceptable Risk for Surgery Consults Requested none History Surgery Operation Date: 05/12/19 09:15 Proposed Procedures p Laparoscopic Operative - Laura Marshall MD, FACOG Height/Weight Height: 5 ft Weight: 97 kg Allergies Allergy/AdvReac Type Severity Reaction Status Date / Time No Known Allergies Allergy Verified 05/12/19 14:18 Medications Home Medications Medication Instructions Recorded Confirmed Last Taken atorvastatin 40 mg PO QAM 05/03/18 05/12/19 05/12/19 metformin 500 mg PO BIDM 05/03/18 05/12/19 05/12/19 lisinopril-hydrochlorothiazide 1 tab PO QAM 06/03/18 05/12/19 05/12/19 Basagladair BurnettPen U-100 Insulin 36 unit SUBCUT HS 02/21/19 05/12/19 05/11/19 Active Medications Generic Name Dose Route Start Last Admin Trade Name Freq PRN Reason Stop Dose Admin Ioversol 94 ml 05/12/19 19:05 05/12/19 19:06 Optiray 320 100ml IV 05/16/19 19:04 94 ml ONCE PRN Administration Interaction Checking NPO Date Last Intake of Fluids: 05/12/19 Time Last Intake of Fluids: 11:00 Date Last Intake of Solids: 05/11/19 Time Last Intake of Solids: 18:00 Past Medical History Medical History Alport syndrome "carrier", no hearing deficits- follows with nephrology Anemia chronic; hgb stable in the 9 range Cardiac murmur no significant valvular disease per 2016 ECHO; "very soft I/ systolic murmur" per PAT visit 05/2018 Degenerative disc disease with LUE neuropathy Diabetes mellitus, type 2 GERD (gastroesophageal reflux disease) WELL CONTROLLED. Hyperlipidemia Hypertension Morbid (severe) obesity due to excess calories Past Family History Family History Mother Diabetes Brother Diabetes Past Surgical History Surgical History History of difficult intubation C4-C7 ACDF: 06/03/18: Grade view 1, Glidescope#3, ETT 7.0 at [facility] History of section X2 History of dilatation and curettage Hx of neck surgery C4-C7 ACDF (no ROM limitations per patient) Social History Smoking Status: Former smoker Hx Alcohol Use: No Hx Substance Use: No substance use type: does not use Physical Exam Vital Signs Last Vital Signs Temp 36.6 C 05/12/19 21:20 Pulse 88 05/12/19 21:20 Resp 20 05/12/19 21:20 BP 151/86 H 05/12/19 21:20 Pulse Ox 98 05/12/19 21:20 Testing Laboratory Results 05/12/19 13:38 05/12/19 13:38 Urine Color Yellow 05/12/19 13:31 Urine Appearance Clear (Clear) 05/12/19 13:31 Urine pH 5.0 (4.5-7.5) 05/12/19 13:31 Ur Specific Rena Lara 1.021 (1.000-1.030) 05/12/19 13:31 Urine Protein Negative (Negative) 05/12/19 13:31 Urine Glucose (UA) 3+ (Negative) H 05/12/19 13:31 Urine Ketones Negative (Negative) 05/12/19 13:31 Urine Nitrite Negative (Negative) 05/12/19 13:31 Ur Leukocyte Esterase 1+ (Negative) H 05/12/19 13:31 Urine WBC (Auto) 5-10 /hpf (0-5) H 05/12/19 13:31 Urine RBC (Auto) 0-4 /hpf (0-4) 05/12/19 13:31 U Hyaline Cast (Auto) 0 /lpf (0-5) 05/12/19 13:31 U Epithel Cells (Auto) >30 /lpf (0-5) H 05/12/19 13:31 Urine Bacteria (Auto) Negative (Negative) 05/12/19 13:31
[2019-05-12] MEDS ORDERED: fentaNYL citrate 100 MCG/2 ML VIAL IV PRN (21:48)
[2019-05-12] MEDS ORDERED: METOCLOPRAMIDE HCL INJ 5 MG/ML 2 ML VIAL IV PRN (21:48)
[2019-05-12] MEDS ORDERED: ATROPINE SULFATE 0.1 MG/ML 10ML SYR IV PRN (21:48)
[2019-05-12] MEDS ORDERED: HYDROmorphone INJ 2 MG/ML SYR/VIAL IV PRN (21:48)
[2019-05-12] MEDS ORDERED: PROMETHAZINE HCL 12.5 MG in SODIUM CHLORIDE 0.9% 50 ML IV PRN (21:48)
[2019-05-12] MEDS ORDERED: ONDANSETRON INJ 2 MG/ML 2 ML VIAL IV PRN ×2 (21:48→23:34)
[2019-05-12] MEDS ORDERED: ePHEDrine sulfate 50 MG/ML AMP IV PRN (21:48)
[2019-05-12] MEDS ORDERED: DEXAMETHASONE SOD INJ 4 MG/ML VIAL IV PRN (21:48)
[2019-05-12] MEDS ORDERED: MIDAZOLAM HCL 1 MG/ML 2ML VIAL ONE (21:56)
[2019-05-12] MEDS ORDERED: fentaNYL citrate 100 MCG/2 ML VIAL ONE (21:56)
[2019-05-12] MEDS ORDERED: PROPOFOL IV EMULSION 10 MG/ML 20 ML VIAL IV ONE (22:58)
[2019-05-12] MEDS ORDERED: ROCURONIUM BROMIDE 10 MG/ML 5 ML VIAL ONE (22:58)
[2019-05-12] MEDS ORDERED: GLYCOPYRROLATE 0.2 MG/ML VIAL ONE (22:58)
[2019-05-12] MEDS ORDERED: LIDOCAINE HCL 2% 2 ML VIAL/AMP(20MG/ML) INFIL ONE (22:58)
[2019-05-12] MEDS ORDERED: NEOSTIGMINE METHYLSULFATE 5 MG/5 ML SYR ONE (22:58)
[2019-05-12] MEDS ORDERED: ONDANSETRON INJ 2 MG/ML 2 ML VIAL ONE (22:58)
[2019-05-12] MEDS ORDERED: DEXAMETHASONE SOD INJ 4 MG/ML VIAL ONE (22:58)
[2019-05-12] MEDS ORDERED: NALOXONE HCL 0.4 MG/1 ML VIAL/CARP IV PRN ×2 (23:34→23:48)
[2019-05-12] MEDS ORDERED: ACETAMINOPHEN 325 MG TAB PO PRN (23:34)
--- NOTE | 2019-05-12 23:34 | Post Operative Brief Note ---
PG Immediate Post Op with CF Date of Surgery May 12, 2019 Pre & Post Diagnosis Operation Date: 05/12/19 09:15 Pre-Op Diagnosis: Pelvic Pain, Pelvic Mass Postop diagnoses same, anterior uterine wall mass I identified the patient and participated in the time-out.: Yes Procedure Operation Date: 05/12/19 09:15 Actual Procedures Diagnostic laparoscopy Mini laparotomy Resection of uterine wall mass Surgeon Laura Marshall MD, FACOG Pcts Tony CAR Estimated Blood Loss 5 Findings Consistent with Post-Op Diagnosis (laparoscopic findings difficult due to poor positioning due to high pt pressures, ovaries not well seen but mass emanating from anterior uterus [id number]. hemorrhagic and irregular. laparotomy findings with mass, irregular and soft, spongy, left adenae with spongy material. normal ovaries bilaterally.) mass essentially appears that it has extruded through wall. Fluids 900 Specimens Specimen Description: 1: Peritoneal Washing for Cytology 2. Anterior uterine wall mass Drains Dodge Catheter Anesthesia Type General Complications none Disposition Accompanied Patient To Recovery: No Disposition: Recovery Room
[2019-05-12] MEDS ORDERED: SODIUM CHLORIDE 0.9% 1000ML 1,000 ML IV SCH ×2 (23:45)
[2019-05-12] MEDS ORDERED: HYDROmorphone PCA 30 MG/30 ML IV PRN (23:55)
--- NOTE | 2019-05-13 00:14 | Operative Report ---
PG Post Operative Report Pre & Post Diagnosis Operation Date: 05/12/19 09:15 Pre-Op Diagnosis: Pelvic Pain, Pelvic Mass Post-Op Diagnosis: Pelvic Pain, Pelvic Mass I identified the patient and participated in the time-out.: Yes Procedure Operation Date: 05/12/19 09:15 Actual Procedures p Diagnostic laparoscopy, Mini laparotomy, Resection of uterine wall mass(Not Applicable) - Laura Marshall MD, FACOG Surgeon Laura Marshall MD, FACOG Phy Therapist Tony CAR Estimated Blood Loss 5 Findings See Below Laparoscopic findings included visible hemorrhagic appearing mass of anterior uterus and ovaries quite obscured by bowel. Patient positioning difficult due to poor ventilation with Trendelenburg. Adhesions of omentum to anterior abdominal wall towards the right. Fundus of uterus visible and appeared smooth. Bloody free fluid noted. Laparotomy findings with 10 x 10 cm irregular soft and spongy anterior uterine wall mass protruding from the myometrium. Once resected tissue beneath also spongy. Left and right ovaries normal. Left adnexal region in the area of the broad ligament with spongy irregular tissue. Fluids 900 Specimens Pelvic washings, anterior uterine mass Drains Redmond catheter Anesthesia Type General Complications none Disposition Accompanied Patient To Recovery: No Disposition: Recovery Room Indications 48-year-old 2 para 2 who presented to the emergency department with pelvic pain and the pelvic mass we desired surgical management. The patient had peritoneal signs of the pain and rebound and evidence of possible bloody fluid within the pelvis. Options given to the patient and she desired to proceed with surgical evaluation. Imaging studies reviewed but difficult to interpret. Description of Procedure The patient was taken to the operating room and identified. After adequate general anesthesia was obtained she was placed in the dorsolithotomy position and prepped and draped in the usual sterile fashion. Attention was turned to the patient's vagina where retractors were placed to visualize the cervix which was grasped on its anterior lip with a Allis clamp. The acorn uterine manipulator was gently placed through the cervical os and connected to the Allis clamp to allow for uterine manipulation. A Redmond catheter was then placed under sterile conditions. Attention was then turned to the patient's abdomen which was morbidly obese. A supra umbilical skin incision was made with the scalpel. The veress needle was placed intraperitoneally with an opening pressure of 6 mmHg. A CO2 pneumoperitoneum was created. This was difficult due to the deep layers of fat. Once a pneumoperitoneum was obtained the 12 mm optical trocar was placed intraperitoneally under direct visualization. With intraperitoneal placement the patient was placed in Trendelenburg. Steep Trendelenburg was not possible for reasons as noted above. A 5 mm trocar was trocar site was made left of the midline by first making a skin incision and then placing under direct visual visualization a 5 mm trocar. A blunt probe as well as a suction warehouse production worker were used through this trocar site in order to try to visualize the mass. The findings were as noted above. Visualization was poor and the patient did not tolerate steep Trendelenburg to allow for proceeding further laparoscopically. For this reason the decision was made to proceed with a laparotomy. The trocars were removed and the CO2 gas escape somewhat. Knife was then used to create a vertical skin incision in the area of a past incision. This opening was carried down to the underlying layer of fascia. Old permanent sutures were encountered presumably from a prior section. Dissecting through her tissue was somewhat difficult. At the level of the fascia an opening was made. The peritoneum was then elevated and opened into sharply. The fascial and peritoneal incision was extended superiorly and inferiorly with direct visualization of the bladder. The skin incision had to be extended. The mass was able to be palpated and elevated through the incision. The ovaries were inspected on each side and noted to be normal. The tissue as described in the left adnexa was noted. The Bovie cautery was used to come across the base of this extruding mass. Prior to all of this pelvic washings had been obtained. The base of the operative site was notably spongy. Interrupted sutures of 0 Vicryl werer placed across this serosal surface and hemostasis was adequate. The pelvis was irrigated and once again the operative site was inspected and noted to be hemostatic. At this point the procedure was terminated. The fascia was closed in a modified Smead Gomez fashion using #1 PDS suture. The subcutaneous tissue was reapproximated using 2-0 chromic in interrupted sutures. The skin incisions were then all closed using scott. The vaginal instruments were removed and the redmond catheter remained. The patient was returned to the supine position. She was awoken from anesthesia and transported to recovery room in stable condition. All sponge lap needle counts were correct x2. I attest to the content of the Intraoperative Record and any orders documented therein. Any exceptions are noted below.
--- NOTE | 2019-05-13 00:28 | Anesthesiology Progress Note ---
Date of Service May 13, 2019 Anesthesia Post Procedure Vital Signs Vital Signs: Temp Pulse Pulse Resp BP BP Pulse Ox 05/12/19 21:20 36.6 C 88 20 151/86 H 98 05/12/19 19:10 91 H 18 131/86 95 05/12/19 18:03 88 20 129/88 99 05/12/19 16:11 86 20 109/78 97 05/12/19 14:59 94 H 18 117/80 99 05/12/19 14:11 91 H 18 127/83 97 05/12/19 13:44 90 20 117/83 97 05/12/19 11:59 36.7 C 108 H 17 141/79 H 100 Pain Intensity Right Lower Abdomen: Pain Intensity: 2 Transfer of Care Handoff Completed per policy Notes Mental Status: alert / awake / arousable and participated in evaluation Patient Amnestic to Procedure: Yes Nausea / Vomiting: adequately controlled Pain: adequately controlled Airway Patency, RR, SpO2: stable & adequate BP & HR: stable & adequate Hydration State: stable & adequate Anesthetic Complications: no major complications apparent
[2019-05-13] MEDS ORDERED: PHARMACY GLYCEMIC MGMT CONSULT PRN (00:32)
[2019-05-13] MEDS ORDERED: INSULIN ASPART 100 UNITS/ML 3 ML PEN SC STA (04:13)
[2019-05-13] MEDS ORDERED: GLUCAGON FOR INJ 1 MG VIAL SQ PRN (04:15)
[2019-05-13] MEDS ORDERED: GLUCOSE 10 TABS/TUBE PO PRN (04:15)
[2019-05-13] MEDS ORDERED: GLUCOSE 40% GEL 15 GM TUBE PO PRN (04:15)
[2019-05-13] MEDS ORDERED: DEXTROSE 50% 50 ML SYRINGE IV PRN (04:15)
[2019-05-13] MEDS ORDERED: INSULIN GLARGINE SOLOSTAR 100 UNITS/ML 3 ML PEN SC ONE (04:15)
[2019-05-13] MEDS ORDERED: CARBOHYDRATES FOR HYPOGLYCEMIA PO PRN (04:15)
[2019-05-13] MEDS ORDERED: INSULIN ASPART 100 UNITS/ML 3 ML PEN SC ONE ×2 (06:00→06:15)
[2019-05-13] MEDS ORDERED: INSULIN HUMAN REGULAR PER UNIT 4 UNITS in SYRINGE 3.96 ML IV ONE (06:00)
[2019-05-13 06:04] LABS: Basophils # (auto) 0.01 K/uL (0-0.2); Basophils % (auto) 0.1 %; Hematocrit (blood only) 28.6 % (37-47); Hemoglobin 8.4 g/dL (12.0-16.0); Immature Granulocytes # (auto) 0.06 K/uL (0.00-0.02); Immature Granulocytes % (auto) 0.3 %; Lymphocytes # (auto) 0.58 K/uL (1.2-3.4); Lymphocytes % (auto) 3.1 %; Mean Corpuscular Hemoglobin 20.3 pg (25-34); Mean Corpuscular Hgb Conc 29.4 g/dL (32-36); Mean Corpuscular Volume 69.2 fL (80-100); Monocytes # (auto) 0.25 K/uL (0.11-0.59); Monocytes % (auto) 1.3 %; Neutrophils % (auto) 95.2 %; Platelet Count 265 K/uL (130-400); RDW Coefficient of Variation 15.4 % (11.5-14.5); RDW Standard Deviation 38.8 fL (36.4-46.3); Red Blood Count 4.13 M/uL (4.2-5.4)
[2019-05-13 06:30] LABS: Microcytosis Present; Ovalocytes 1+
[2019-05-13] MEDS ORDERED: DC PCA 1 EA DEVI ONE (07:13)
[2019-05-13] MEDS ORDERED: OXYCODONE/ACETAMINOPHEN 5mg/325mg TAB PO PRN ×2 (07:13)
[2019-05-13] MEDS ORDERED: IBUPROFEN 600 MG TAB PO PRN (07:15)
--- NOTE | 2019-05-13 07:20 | Gynecologic Progress Note ---
Date of Service May 13, 2019 Assessment & Plan (1) Pelvic mass: (2) Pelvic pain: ambulate, adv diet, po pain meds. d/c radiation protection engineer. we had reviewed likely need for transition mgr rn onc consult and pt agreeable. cbc this am. Subjective doing well this am. has not required much radiation protection engineer dilaudid. denies cp/sob, feels her pain is better, sipping on liquids, no n/v. see handwritten note from downtime but i did d/w pt my concern for her dx. her dad was present. no flatus. redmond has been d/c'd, no urge to void. Review of Systems Gastrointestinal: no change in stools Genitourinary: no dysuria and no abnormal vaginal bleeding Physical Exam Constitutional: WD/WN, vitals as above Respiratory: normal respiratory effort, lungs clear to auscultation Cardiovascular: Rate/Rhythm: regular rate and regular rhythm Gastrointestinal (Abdomen): Percussion/Palpation: abdomen soft (obese, incisions with dressing c/d/i); abdomen nontender and no guarding Musculoskeletal: nt calves Neurologic: grossly normal Psychiatric: A+Ox3, euthymic affect Results & Data Vital Signs (Past 12 Hours) Vital Signs Temp Pulse Pulse Resp BP Pulse Ox 05/13/19 03:50 98.1 F 85 16 115/70 91 05/13/19 02:10 97.9 F 81 16 124/72 91 05/13/19 01:40 97.9 F 81 16 136/81 91 05/13/19 01:18 97.5 F L 87 18 136/78 92 05/13/19 00:40 79 16 131/69 05/13/19 00:20 97.7 F 79 18 92 05/13/19 00:10 77 16 149/88 H 94 05/13/19 00:01 16 158/74 H 96 05/12/19 23:52 97.5 F L 71 16 138/75 95 05/12/19 21:20 97.9 F 88 20 151/86 H 98 PG Care Time/CCT Total # of Minutes Spent Total Time Spent with Patient: Total time spent is greater than 50% in coordination of care (as documented) at patient's floor/unit and/or counseling patient:
--- NOTE | 2019-05-13 08:44 | Pharmacy Report ---
Glycemic Control Consultation - Date of Service May 13, 2019 - Scope Scope: Glycemic Pharmacist consulted by Dr Marshall on 05-13 for glycemic control and to write orders per [facility] inpatient glycemic control protocol - Objective Weight: 97 kg Acccarisaecks BSG (last 24hrs): 05/12/19 05/13/19 05/13/19 13:38 01:29 01:30 Glucose 260 H POC Glucose 332 H* 334 H* 05/13/19 05/13/19 05/13/19 05:44 05:45 05:46 Glucose POC Glucose 308 H* 292 H 305 H* Laboratory Data (last 24hrs): 05/12/19 13:38 Potassium 4.0 Carbon Dioxide 25 Anion Gap 9.0 Creatinine 1.44 H Est Cr Clr Drug Dosing 50.9 - Recent Pertinent Medications Outpatient Anti-diabetic Regimen: * Lantus (Basaglar) 36 units HS, metformin 500 mg BIDm * A1c = 8.3 % 05/08/18 - reordered another A1C for 05/14 Risk Factors for Insulin Resistance: * Steroids: DXM 4 mg iv x 1 last evening * Recent Surgery: POD 1 * Diet: T2DM - Assessment & Plan Assessment & Plan: ASSESSMENT: * 48 year old admitted with pelvic pain now s/p resection of uterine wall mass 05/12. POD 1 today. Pharmacy consulted for BSG management. * BSGs in 300s this morning - likely due to steroids given last evening during surgery. Lantus home dose missed last evening, given early overnight * Did receive SSI early this morning, BSGs still elevated therefore did tighten CF/CR to stress of 3 dosing * Hesitant to give more Lantus as likely her home dosing covers some meal time coverage as well. She is not on any meal time insulin at home, just metformin. Metformin held on admission. Will utilize basal/bolus dosing until BSGs better controlled PLAN FOR INPATIENT GLYCEMIC CONTROL: * Pt is maintained on oral antidiabetic agents as an outpatient * Oral agents are not recommended for inpatient use d/t drug interactions, changing PO intake, and difficulty titrating for acute hyper/hypoglycemia. ADA recommends re-initiating outpatient oral agents 1-2 days prior to discharge if/when appropriate if they were held on admission. * Will hold oral agents for admission and utilize SQ basal bolus insulin regimen which is the recommended regimen for inpatient glycemic control. * Will initiate weight based insulin dosing for insulin vj patient and titrate based on BSG trends. * Basal insulin * Lantus 36 units given early this AM to make up for missed dose last evening * Lantus with dinner based upon scale -For BSG less than 180 give 36 units -For BSG 180 or more give 40 units * Bolus insulin - added overnight scale * NovoLog per scale ACHS or Q6hrs while NPO * Goal Range: Low 120 mg/dL - High 160 mg/dL * Correction Factor: 15 mg/dL/unit * Nutritional / Prandial insulin per carb ratio of 1 unit per 6 grams CHO consumed * Please note that the plan above was derived based on current level of insulin resistance and hospital stress. These recommendations are appropriate for inpatient admission only. Plan of care upon discharge will need to be reassessed to avoid potential outpatient hypo/hyperglycemia. Thank you.
[2019-05-13] MEDS: INSULIN ASPART 100 UNITS/ML 3 ML PEN SC SCH ×4 (08:46→20:50)
[2019-05-13] MEDS ORDERED: INSULIN GLARGINE SOLOSTAR 100 UNITS/ML 3 ML PEN SC SCH ×2 (16:30→21:00)
[2019-05-14] MEDS: INSULIN ASPART 100 UNITS/ML 3 ML PEN SC SCH ×3 (00:07→08:59)
[2019-05-14 06:22] LABS: Estimated Average Glucose 255 mg/dl; Hemoglobin A1C 10.5 % (4.5-5.6)
--- NOTE | 2019-05-14 07:33 | Gynecologic Progress Note ---
Date of Service May 14, 2019 Assessment & Plan (1) Pelvic mass: (2) Pelvic pain: path pending. will d/c home, f/u with us for staple removal in 7-10d we will call her. likely needs special agent in charge onc referral, we will call her. contact numbers given for our office surgery staff. instructions reviewed. Subjective doing well postop. eating, drinking, ambulating, voiding, +flatus. No bleeding. ready to go home, pain well controlled. Review of Systems Constitutional: no fever and no chills Gastrointestinal: as per Subjective / HPI Genitourinary: as per Subjective / HPI Physical Exam Constitutional: WD/WN, vitals as above Respiratory: normal respiratory effort, lungs clear to auscultation Cardiovascular: Rate/Rhythm: regular rate and regular rhythm Gastrointestinal (Abdomen): Inspection/Auscultation: normal bowel sounds and + abdominal surgical incision (c/d/i with scott); abdomen not distended Percussion/Palpation: abdomen soft (obese); abdomen nontender and no hernia Neurologic: grossly normal Psychiatric: A+Ox3, euthymic affect Results & Data Vital Signs (Past 12 Hours) Vital Signs Temp Pulse Resp BP Pulse Ox 05/14/19 03:35 97.5 F L 74 18 105/60 94 05/13/19 23:50 97.9 F 78 18 107/60 95 05/13/19 19:45 97.9 F 88 18 125/68 92 PG Care Time/CCT Total # of Minutes Spent Total Time Spent with Patient: Total time spent is greater than 50% in coordination of care (as documented) at patient's floor/unit and/or counseling patient:
[2019-05-14] MEDS ORDERED: METFORMIN HCL 500 MG TAB PO SCH (08:00)
[2019-05-14] MEDS ORDERED: ATORVASTATIN 40 MG TAB PO SCH (09:00)
[2019-05-14] MEDS ORDERED: LISINOPRIL/HCTZ 20/12.5MG 1 TAB TAB PO SCH (09:00)
[2019-05-14] MEDS ORDERED: INSULIN GLARGINE SOLOSTAR 100 UNITS/ML 3 ML PEN SC ONE (09:00)
--- NOTE | 2019-05-19 20:40 | Discharge Summary ---
Date of Service Date of admission: May 12, 2019 Date of discharge: May 14, 2019 Discharge Data Procedures Performed Operation Date: 05/12/19 09:15 Actual Procedures p Diagnostic laparoscopy, Mini laparotomy, Resection of uterine wall mass(Not Applicable) - Laura Marshall MD, [facility] Course (1) Pelvic mass: (2) Pelvic pain: The patient underwent evaluation in ER with decision to proceed to OR for pelvic pain and pelvic mass. She underwent the above stated procedures. Her postoperative recovery was without complication. On her postoperative day #2 she was tolerating a regular diet, voiding without difficulty and pain was well controlled. She was given appropriate instructions and pain medicine prescriptions. Pending pathology it was unclear if she would be seeing ob/gyn physician oncology more urgently or if she would return to office for staple removal. She was aware we would be in touch with her about this. She was prepared for a possible concerning diagnosis requiring more surgery. Instructions were reviewed. See the ER documents and operative report for more details.
== END 2019-05-14 09:30 | disposition home or self-care (01) ==
LOC: ED 11:56 → OR 21:37 → 4N 21:37